=== PATIENT | male | born 1935 | race Caucasian/White ===

== ENCOUNTER 2018-10-09 22:27 | Emergency (ER) | payer MEDICARE, OTHER ==
--- NOTE | 2018-10-09 22:46 | ER Document Report ---
ED General - General Stated Complaint: SHOULDER PAIN Time Seen by Provider: 10/09/18 22:43 Primary Care Provider: DEE DEE TAYLOR MD [Primary Care Provider] - Follow up as needed Notes: Patient is a pleasant 82-year-old male with a history of previous coronary disease who presents with chest pain that radiates to his back. Patient was substernal and radiates his back. Patient was recently discharged from [facility] yesterday. He was discharged after staying there for over a week. 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 He developed some bleeding from when the tumors in the frontal lobe of his brain. This caused a stroke and therefore is admitted there. Original nurse's notes is that he received thrombolytics as this was a report from the paramedics; however, the son said that he did not receive thrombolytics patient actually had bleeding that caused a stroke. It was not a thrombotic event. Patient was doing very well and violent was released yesterday. Tonight he started having chest pain rating to his back and was short of breath. He was not diaphoretic. His temporary office assistant is Dr. Taylor at [facility]. His last heart cath was 2 to 3 years ago at which point it sounds as if he had angioplasty. They do not think he has had any stents placed. After receiving nitro his chest pain resolved. He is currently chest pain-free. TRAVEL OUTSIDE OF THE [place] IN LAST 30 DAYS: No Past Medical History - Social History Smoking Status: Unknown if Ever Smoked Frequency of alcohol use: None Drug Abuse: None Family History: Reviewed & Not Pertinent Review of Systems - Review of Systems Notes: My Normal Review Basic REVIEW OF SYSTEMS: CONSTITUTIONAL : Denies fever, chills, or sweats. Denies recent illness. EENT: Denies eye, ear, throat, or mouth pain or symptoms. Denies nasal or sinus congestion. CARDIOVASCULAR: chest pain. RESPIRATORY: Denies cough, cold, or chest congestion. Denies shortness of breath, difficulty breathing, or wheezing. GASTROINTESTINAL: Denies abdominal pain. Denies nausea, vomiting, or diarrhea. MUSCULOSKELETAL: Some back pain SKIN: Denies rash or skin lesions. HEMATOLOGIC : Denies easy bruising or bleeding. NEUROLOGICAL: Denies altered mental status or loss of consciousness. Denies headache. Denies weakness or paralysis or loss of use of either side. Denies problems with gait or speech. Denies sensory or motor loss. ALL OTHER SYSTEMS REVIEWED AND NEGATIVE. Physical Exam - Vital signs Vitals: Resp BP Pulse Ox 18 102/63 93 10/09/18 22:45 10/09/18 22:45 10/09/18 22:45 - Notes Notes: General Appearance: Well nourished, alert, cooperative, no acute distress, no obvious discomfort. Well-appearing. Vitals: reviewed, See vital signs table. Head: no swelling or tenderness to the head Eyes: PERRL, EOMI, Conjuctiva clear Mouth: No decreasd moisture Lungs: No wheezing, No rales, No rhonci, No accessory muscle use, good air exchange bilaterally. Heart: Normal rate, Regular rythm, No murmur, no rub Abdomen: Normal BS, soft, No rigidity, No abdominal tenderness, No guarding, no rebound, no abdominal masses, no organomegaly Extremities:good pulses in all extremities, no swelling or tenderness in the extremities Skin: warm, dry, appropriate color, no rash Neuro: speech clear, oriented x 3, normal affect, responds appropriately to questions. Course - Re-evaluation Re-evalutation: 10/10/18 00:57 Patient does have elevated troponin concerning for non-ST elevation [place]. He is currently still chest pain-free. Is not any further chest pain since receiving nitroglycerin. I have not anticoagulate the patient as he just recently had bleeding on his brain from the tumor and therefore I think it is too risky to anticoagulate at this time. I have called [facility] and I am waiting to speak with temporary office assistant about transfer. 10/10/18 01:32 [address] speak with Dr. Carpenter, doctor podiatric medicine and [facility]. He ag fela to accept the patient. He excepts the patient on behalf of his attending, Dr. Sylvester. He agrees with plan to hold anticoagulation at this time due to the patient's recent brain tumor bleeding. To monitor patient until transfer. Dictation of this chart was performed using voice recognition software; therefore, there may be some unintended grammatical errors. - Vital Signs Vital signs: Temp Pulse Resp BP Pulse Ox 18 103/65 93 10/09/18 23:02 10/09/18 23:02 10/09/18 23:02 - Laboratory Result Diagrams: 10/09/18 23:50 10/09/18 23:50 Laboratory results interpreted by me: 10/09/18 10/09/18 10/09/18 22:55 23:50 23:50 WBC 19.8 H RBC 4.25 L MCV 99 H RDW 15.3 H Plt Count 122 L Seg Neutrophils % 87.0 H Lymphocytes % 5.6 L Absolute Neutrophils 17.3 H Chloride 109 H BUN 50 H Creatinine 1.44 H Est GFR ( Amer) 57 L Est GFR (Non-Af Amer) 47 L Glucose 289 H Total Protein 5.4 L Albumin 3.0 L Urine Protein 30 H Urine Glucose (UA) >=500 H Urine Blood LARGE H Urine Nitrite POSITIVE H Ur Leukocyte Esterase LARGE H - EKG Interpretation by Me Additional EKG results interpreted by me: 10/09/18 22:45 EKG is reviewed and interpreted by me. It is difficult to tell the patient has sinus rhythm or not as she has a lot of baseline artifact making it difficult to interpret if there are actual true P waves. Rate is approximately [address] segment elevation or depression. QRS duration and QT intervals are within normal range. No old EKG available for comparison. Discharge - Discharge Clinical Impression: NSTEMI (non-ST elevated myocardial infarction) Condition: Stable Disposition: [facility] Referrals: DEE DEE TAYLOR MD [Primary Care Provider] - Follow up as needed
[2018-10-09 23:37] LABS: APPEARANCE,URINE CLOUDY; BILIRUBIN,URINE NEGATIVE (NEGATIVE); COLOR,URINE YELLOW; GLUCOSE, URINE >=500 mg/dL (NEGATIVE); KETONES,URINE NEGATIVE (NEGATIVE); LEUKOCYTE ESTERASE,URINE LARGE (NEGATIVE); NITRITE,URINE POSITIVE (NEGATIVE); PROTEIN,URINE 30 mg/dL (NEGATIVE); URINE SPECIFIC GRAVITY 1.021; UROBILINOGEN,URINE NEGATIVE mg/dL (<2.0)
[2018-10-10 00:09] LABS: ABSOLUTE LYMPHOCYTES (AUTO) 1.1 10^3/uL (0.5-4.7); ABSOLUTE MONOCYTES (AUTO) 1.4 10^3/uL (0.1-1.4); ABSOLUTE NEUT (AUTO) 17.3 10^3/uL (1.7-8.2); BASOPHILS % (AUTO) 0.1 % (0-2); HEMATOCRIT 41.9 % (37.9-51.0); HEMOGLOBIN 13.9 g/dL (13.5-17.0); LYMPHOCYTES % (AUTO) 5.6 % (13-45); MEAN CORPUSCULAR HEMOGLOBIN 32.8 pg (27.0-33.4); MEAN CORPUSCULAR HGB CONC 33.3 g/dL (32.0-36.0); MEAN CORPUSCULAR VOLUME 99 fl (80-97); MONOCYTES % (AUTO) 7.3 % (3-13); PLATELET COUNT 122 10^3/uL (150-450); RED BLOOD COUNT 4.25 10^6/uL (4.35-5.55); RED CELL DISTRIBUTION WIDTH 15.3 % (11.5-14.0); TOTAL CELLS COUNTED % (AUTO) 100 %; WHITE BLOOD COUNT 19.8 10^3/uL (4.0-10.5)
[2018-10-10 00:20] LABS: ALANINE AMINOTRANSFERASE 37 U/L (21-72); ALKALINE PHOSPHATASE 47 U/L (38-126); ANION GAP 7 (5-19); ASPARTATE AMINO TRANSFERASE 23 U/L (17-59); BILIRUBIN,DIRECT 0.3 mg/dL (0.0-0.4); BILIRUBIN,TOTAL 0.5 mg/dL (0.2-1.3); BLOOD UREA NITROGEN 50 mg/dL (7-20); CALCIUM 8.9 mg/dL (8.4-10.2); CARBON DIOXIDE 24 mmol/L (22-30); CHLORIDE 109 mmol/L (98-107); GLUCOSE 289 mg/dL (75-110); POTASSIUM 4.6 mmol/L (3.6-5.0); TOTAL PROTEIN 5.4 g/dL (6.3-8.2)
--- NOTE | 2018-10-10 00:20 | RADIOLOGY REPORT (SQ) ---
XR CHEST 1 VIEW HISTORY: Chest pain. COMPARISON: None. FINDINGS: Normal heart size with prior CABG noted. No consolidation, pleural effusion, or pneumothorax is seen. There are no acute bony findings. IMPRESSION: No evidence of acute cardiopulmonary disease.
[2018-10-10] MEDS ORDERED: CEFTRIAXONE 1 GM/D5W RTU 1 GM/50 ML RTUPB IV ONE (00:52)
--- NOTE | 2018-10-10 12:34 | EKG REPORT ---
SEVERITY:- ABNORMAL ECG - PROBALE SINUS, REC REPEAT EKG NONSPECIFIC INTRAVENTRICULAR CONDUCTION DELAY INFERIOR INFARCT, AGE INDETERMINATE : Confirmed by: Ministerio Santos 10-Oct-2018 12:34:04
== END 2018-10-10 02:50 | disposition short-term general hospital (02) ==
LOC: ER 22:27
DX: I21.4 Non-ST elevation (NSTEMI) myocardial infarction (principal); R07.9 Chest pain, unspecified
CPT/HCPCS: 93005; 99285; 96365; 36415; 87086; 85025; 87088; 80053; 81001; 84484; 87186; 71045; 93010; J0696